=== PATIENT | female | born 1965 | race Caucasian/White ===

== ENCOUNTER 2022-08-04 08:51 | Emergency (ER) | payer OTHER ==
[~2022-08-04] VITALS: Ht 152.4 cm; Wt 78.8 kg
[2022-08-04] MEDS ORDERED: ATEN-73 PO (09:03)
[2022-08-04] MEDS ORDERED: OXYB5SYR6 PO (09:03)
[2022-08-04] MEDS ORDERED: LEVO88TA4 PO (09:03)
[2022-08-04] MEDS ORDERED: ATOR20TA65 PO (09:03)
[2022-08-04] MEDS ORDERED: PARO-149 PO (09:03)
[2022-08-04] MEDS ORDERED: ACET-66 PO (09:03)
[2022-08-04] MEDS ORDERED: IPRATROPIUM BROMIDE 0.5 MG/2.5 ML NEB SOLUTION NEB ONE (10:30)
[2022-08-04] MEDS ORDERED: ALBUTEROL SULFATE 2.5 MG/0.5 ML NEB SOLUTION NEB ONE (10:30)
[2022-08-04 10:51] LABS: BASOPHILS % (AUTO) 0.6 % (0.0-2.0); EOSINOPHILS % (AUTO) 2.2 % (1.0-6.0); HEMATOCRIT 41.8 % (36-46); HEMOGLOBIN 13.8 g/dL (12.0-16.0); LYMPHOCYTES # (AUTO) 1.6 K/uL (1.0-4.8); LYMPHOCYTES % (AUTO) 38.5 % (22.0-44.0); MEAN CORPUSCULAR HEMOGLOBIN 28.8 pg (26.0-34.0); MEAN CORPUSCULAR VOLUME 87 fL (80-100); MONOCYTES # (AUTO) 0.5 K/uL (0.1-1.0); MONOCYTES % (AUTO) 12.7 % (2.0-9.0); NEUTROPHILS # (AUTO) 1.9 K/uL (1.8-7.7); PLATELET COUNT (AUTO) 164 K/uL (150-450); RED BLOOD CELL COUNT(AUTO) 4.79 MIL/uL (4.00-5.20); RED CELL DISTRIBUTION WIDTH 14.6 % (11.5-14.5)
[2022-08-04 10:54] LABS: COVID AG,FIA SOURCE NASAL SWAB
[2022-08-04 11:00] LABS: ANION GAP 5 mmol/L (8-16); CALCIUM, TOTAL 9.3 mg/dL (8.8-10.5); CARBON DIOXIDE 34 mmol/L (22-29); CHLORIDE 101 mmol/L (98-107); CREATININE 0.75 mg/dL (0.60-1.30); GLOMERULAR FILTR. RATE CALC > 60 mL/min (>60); GLUCOSE,RANDOM 105 mg/dL (70-110); POTASSIUM 3.9 mmol/L (3.5-5.1); SODIUM SERUM 140 mmol/L (136-145); UREA NITROGEN, BLOOD 10 mg/dL (7-18)
[2022-08-04 11:06] LABS: ALANINE AMINOTRANSFERASE 49 U/L (12-78); ALBUMIN 3.8 g/dL (3.4-5.0); ALKALINE PHOSPHATASE 75 U/L (46-116); ASPARTATE AMINOTRANSFERASE 42 U/L (15-37); BILIRUBIN,TOTAL 0.6 mg/dL (0.1-1.0)
[2022-08-04 11:27] LABS: INFLUENZA TYPE A NEGATIVE FOR TYPE A (NEGATIVE); INFLUENZA TYPE B NEGATIVE FOR TYPE B (NEGATIVE)
[2022-08-04 12:53] VITALS: BP 129/86
[2022-08-04] MEDS ORDERED: AZIT250T9 PO (13:18)
[2022-08-04] MEDS ORDERED: PRED-554 PO (13:18)
[2022-08-04] MEDS ORDERED: ALBU8HFA IH (13:19)
== END 2022-08-04 13:35 | disposition home or self-care (01) ==
LOC: EMS 08:55
DX: J45.909 Unspecified asthma, uncomplicated (principal); I10 Essential (primary) hypertension; Z88.5 Allergy status to narcotic agent; Z20.822 Contact with and (suspected) exposure to COVID-19
CPT/HCPCS: 71046; 80053; 85025; 87804; 94640; 99284; 36415-L1; 36415-TC; J7613

== ENCOUNTER 2024-11-11 12:07 | Emergency (ER) | payer OTHER ==
[~2024-11-11] VITALS: Ht 152.4 cm; Wt 63.6 kg
[~2024-11-11 12:07] MED LIST: ACET-66 PO; ALBU18HF12 IH; ATEN-73 PO; ATOR20TA65 PO; LEVO88TA4 PO; OXYB5SYR6 PO; PARO-149 PO; PRED-554 PO
[2024-11-11] MEDS ORDERED: CYCL-448 PO (12:22)
[2024-11-11] MEDS ORDERED: LEVO88CA4 PO (12:23)
[2024-11-11] MEDS ORDERED: TERB250T89 PO (12:24)
[2024-11-11 12:27] VITALS: BP 139/93; PULSE 80; RESP 18; TEMP 98; O2SAT 100
[2024-11-11 12:38] LABS: BASOPHILS % (AUTO) 0.5 % (0.0-2.0); HEMATOCRIT 44.1 % (36-46); HEMOGLOBIN 14.4 g/dL (12.0-16.0); LYMPHOCYTES % (AUTO) 22.9 % (22.0-44.0); MEAN CORPUSCULAR HEMOGLOBIN 28.5 pg (26.0-34.0); MEAN CORPUSCULAR HGB CONC 32.5 G/dL (31.0-37.0); MEAN CORPUSCULAR VOLUME 87 fL (80-100); MONOCYTES # (AUTO) 0.6 K/uL (0.1-1.0); MONOCYTES % (AUTO) 6.4 % (2.0-9.0); NEUTROPHILS # (AUTO) 6.1 K/uL (1.8-7.7); NEUTROPHILS % (AUTO) 69.2 % (40.0-70.0); PLATELET COUNT (AUTO) 216 K/uL (150-450); RED BLOOD CELL COUNT(AUTO) 5.05 MIL/uL (4.00-5.20); RED CELL DISTRIBUTION WIDTH 14.6 % (11.5-14.5); WHITE BLOOD COUNT (AUTO) 8.9 K/uL (4.5-11.0)
[2024-11-11 12:43] LABS: ANION GAP 9 mmol/L (8-16); CALCIUM, TOTAL 9.1 mg/dL (8.8-10.5); CARBON DIOXIDE 27 mmol/L (22-29); CHLORIDE 102 mmol/L (98-107); CREATININE 0.84 mg/dL (0.60-1.30); GLOMERULAR FILTR. RATE CALC > 60 mL/min (>60); GLUCOSE,RANDOM 100 mg/dL (70-110); POTASSIUM 3.9 mmol/L (3.5-5.1); SODIUM SERUM 138 mmol/L (136-145); UREA NITROGEN, BLOOD 15 mg/dL (7-18)
[2024-11-11 12:51] LABS: LIPASE 78 U/L (16-77); TROPONIN I-HIGH SENSITIVITY Less Than 4 ng/L (<51)
[2024-11-11 13:53] LABS: ALBUMIN 3.9 g/dL (3.4-5.0); BILIRUBIN,DIRECT 0.1 mg/dL (0.00-0.20); BILIRUBIN,TOTAL 0.7 mg/dL (0.1-1.0); TOTAL PROTEIN, SERUM 7.9 g/dL (6.4-8.2)
[2024-11-11] MEDS ORDERED: ONDA-104 PO (14:56)
[2024-11-11] MEDS ORDERED: ACET-66 PO (14:56)
[2024-11-11] MEDS ORDERED: IBUP-1554 PO (14:56)
[2024-11-11] MEDS ORDERED: OMEP-148 PO (14:56)
== END 2024-11-11 15:30 | disposition home or self-care (01) ==
LOC: EMS 12:07
DX: K80.70 Calculus of gallbladder and bile duct without cholecystitis without obstruction (principal); I10 Essential (primary) hypertension; Z79.52 Long term (current) use of systemic steroids; Z79.899 Other long term (current) drug therapy; Z88.5 Allergy status to narcotic agent; Z90.89 Acquired absence of other organs
CPT/HCPCS: 76700; 80048; 80076; 83690; 84484; 85025; 93005; 99284